=== PATIENT | female | born 1940 | race Two or more races ===

== ENCOUNTER 2023-09-19 23:16 | Emergency (ER) | payer OTHER ==
[~2023-09-19] VITALS: Ht 160 cm; Wt 65.8 kg
[~2023-09-19 23:16] MED LIST: NEURONTIN300 MG; NEURONTIN600 MG; PANADOL EXTRA500 MG; PLAVIX75 MG
[2023-09-19] MEDS ORDERED: JANUVIA25 MG (23:29)
[2023-09-19] MEDS ORDERED: ZETIA10 MG (23:29)
[2023-09-20] MEDS ORDERED: METHYLPREDNISOLONE SOD SUCC 125 MG VIAL IV STA (01:02)
[2023-09-20] MEDS ORDERED: GUAIFENESIN/DEXTROMETHORPHAN 100 MG/5 ML ML PO STA (01:04)
[2023-09-20] MEDS ORDERED: ALBUTEROL SULFATE 3 ML/2.5 MG AMPUL.NEB IH SCH ×2 (01:15→04:00)
[2023-09-20 01:59] LABS: HEMATOCRIT 34.1 % (36.0-45.00); HEMOGLOBIN 11.4 g/dL (12.0-15.00); MEAN CELL VOLUME 88.3 fL (80.00-100.00); MEAN CORPUSCULAR HEMOGLOBIN 29.6 pg (27.00-32.0); MEAN CORPUSCULAR HGB CONC 33.5 g/dl (32.0-36.0); PLATELET COUNT 251 K/uL (150-450); RED BLOOD COUNT 3.87 M/uL (4.00-6.00); RED CELL DISTRIBUTION WIDTH 14.4 % (11.5-14.5)
[2023-09-20 02:13] LABS: ABG PH 7.373 (7.35-7.45); ABG PO2 109.2 mmHg (80-100); ABG pCO2 34.4 mmHg (35-45); BASE EXCESS -4.7 mmol/l
[2023-09-20 02:14] LABS: BICARBONATE 19.6 mmol/l (23-25); Tco2 20.6 mmol/l; allen test SATISFACTORY; o2 21 %; puncture site RADIAL RIGHT
[2023-09-20 02:37] LABS: INR < 0.93; PARTIAL THROMBOPLASTIN TIME 24.2 SECONDS (22.0-34.0); PROTHROMBIN TIME 9.8 SECONDS (9.0-11.5)
[2023-09-20 02:42] LABS: ALBUMIN 4.2 gm/dL (3.4-5.0); BILIRUBIN TOTAL 0.57 mg/dL (0.3-1.2); CALCIUM 9.6 mg/dL (8.5-10.1); CREATININE SERUM 1.46 mg/dL (0.55-1.02); GFR 34.21; GLOBULINA 3.8 G/DL (2.4-3.5); POTASSIUM 4.45 mEq/L (3.5-5.1)
[2023-09-20 02:51] LABS: URINE APPEARANCE Cloudy; URINE BILIRRUBIN Negative (NEGATIVE); URINE BLOOD Negative; URINE COLOR Yellow; URINE GLUCOSE Negative (NEGATIVE); URINE LEUKOCYTE Moderate; URINE NITRATE Negative; URINE PROTEIN Negative (NEGATIVE); URINE UROBILINOGEN 0.2 E.U./dl
[2023-09-20 02:55] LABS: URINE BACTERIA 80.6 uL (0.0-1933); URINE EPITHELIAL CELLS 18.5 uL (0.0-38.8); URINE RBC 7.4 uL (0.0-20.8); URINE WBC 502.7 uL (0.0-23.2)
[2023-09-20] MEDS ORDERED: BUDESONIDE0.5 MG/2 M IH (08:11)
[2023-09-20] MEDS ORDERED: ZYNCOF 20-400120 ML PO (08:11)
[2023-09-20] MEDS ORDERED: ZITHROMAX500 MG PO (08:11)
== END 2023-09-20 08:19 ==
LOC: ER 23:16
PROVIDERS: General Practice
DX: J45.909 Unspecified asthma, uncomplicated (principal); Z91.041 Radiographic dye allergy status; Z88.6 Allergy status to analgesic agent; Z20.822 Contact with and (suspected) exposure to COVID-19
CPT/HCPCS: 36415; 71046; 82803; 94640; 96365; 99284; J3490